=== PATIENT | female | born 2000 | race Caucasian/White ===

== ENCOUNTER 2020-06-22 19:08 | Emergency (ER) | payer OTHER ==
[~2020-06-22] VITALS: Ht 165.1 cm; Wt 78.9 kg
[2020-06-22] MEDS ORDERED: MOBIC7.5 MG PO (19:22)
[2020-06-22] MEDS ORDERED: ZITHROMAX200 MG PO (19:23)
[2020-06-22] MEDS ORDERED: BUDESONIDE0.5 MG/2 M (19:24)
[2020-06-22] MEDS ORDERED: GILTUSS TR TAB1 EACH PO (19:24)
== END 2020-06-22 21:29 | disposition home or self-care (01) ==
LOC: ER 19:08
DX: J45.901 Unspecified asthma with (acute) exacerbation (principal); R00.0 Tachycardia, unspecified; T48.6X5A Adverse effect of antiasthmatics, initial encounter; Y92.89 Other specified places as the place of occurrence of the external cause

== ENCOUNTER 2021-02-28 04:04 | Emergency (ER) | payer OTHER ==
[~2021-02-28] VITALS: Ht 167.6 cm; Wt 68.0 kg
[~2021-02-28 04:04] MED LIST: BUDESONIDE0.5 MG/2 M; GILTUSS TR TAB1 EACH PO; MOBIC7.5 MG PO; ZITHROMAX200 MG PO
[2021-02-28] MEDS ORDERED: DOXYCYCLINE HY100 M2 PO (06:47)
[2021-02-28] MEDS ORDERED: PEPCID AC20 MG PO (06:48)
[2021-02-28] MEDS ORDERED: NAPROXEN375 MG PO (06:48)
== END 2021-02-28 07:05 | disposition home or self-care (01) ==
LOC: ER 04:04
DX: L73.2 Hidradenitis suppurativa (principal)

== ENCOUNTER 2021-11-27 21:43 | Emergency (ER) | payer OTHER ==
[~2021-11-27] VITALS: Ht 167.6 cm; Wt 75.3 kg
[~2021-11-27 21:43] MED LIST changes: +DOXYCYCLINE HY100 M2 PO; +NAPROXEN375 MG PO; +PEPCID AC20 MG PO
[2021-11-27] MEDS ORDERED: CLINDAMYCIN HC300 MG PO (22:31)
[2021-11-27] MEDS ORDERED: INTESTINEX680 M2 PO (22:31)
[2021-11-27] MEDS ORDERED: NAPROXEN375 MG PO (22:31)
== END 2021-11-27 22:35 | disposition home or self-care (01) ==
LOC: ER 21:43
DX: S01.551A Open bite of lip, initial encounter (principal); W54.0XXA Bitten by dog, initial encounter; Y93.89 Activity, other specified; Y92.89 Other specified places as the place of occurrence of the external cause; Y99.8 Other external cause status